=== PATIENT | female | born 1955 | race Caucasian/White ===

== ENCOUNTER 2017-09-25 01:16 | Inpatient (IN) | payer BC ==
[~2017-09-25] VITALS: Ht 175.3 cm; Wt 111.5 kg
[2017-09-25] VITALS (22 sets, daily range): BP systolic 105–214; BP diastolic 54–124; PULSE 75–132; RESP 20–32; TEMP 97.5–98.6; O2SAT 93–100
[2017-09-25] MEDS ORDERED: NITROGLYCERIN-D5W 50 MG/250 ML 250 ML IV ONE (01:30)
[2017-09-25] MEDS ORDERED: SODIUM CHLORIDE 0.9% FLUSH 10 ML FLUSH IVF PRN (01:30)
[2017-09-25] MEDS ORDERED: RESP: ALBUTEROL 2.5 MG/IPRATROPIUM 0.5 MG NEB (SCH) INH ONE (01:30)
[2017-09-25 01:41] LABS: AUTOMATED NEUTROPHIL # 9.6 TH/MM3 (1.8-7.7); BASOPHIL # 0.1 TH/MM3 (0-0.2); BASOPHIL % 0.8 % (0.0-2.0); EOSINOPHIL # 0.6 TH/MM3 (0-0.4); EOSINOPHIL % 3.2 % (0.0-4.0); HEMATOCRIT 42.1 % (35.0-46.0); HEMOGLOBIN 13.2 GM/DL (11.6-15.3); LYMPH % 32.7 % (9.0-44.0); LYMPHOCYTE # 5.6 TH/MM3 (1.0-4.8); MEAN CELL VOLUME 86.9 FL (80.0-100.0); MEAN CORPUSCULAR HEMOGLOBIN 27.3 PG (27.0-34.0); MEAN CORPUSCULAR HGB CONC 31.4 % (32.0-36.0); MEAN PLATELET VOLUME 8.7 FL (7.0-11.0); MONO % 7.4 % (0.0-8.0); MONOCYTE # 1.3 TH/MM3 (0-0.9); NEUT % 55.9 % (16.0-70.0); PLATELET COUNT 441 TH/MM3 (150-450); RED BLOOD COUNT 4.85 MIL/MM3 (4.00-5.30); RED CELL DISTRIBUTION WIDTH 16.1 % (11.6-17.2); WHITE BLOOD COUNT 17.2 TH/MM3 (4.0-11.0)
[2017-09-25 01:45] LABS: BILIRUBIN, URINE NEG (NEG); BLOOD, URINE TRACE (NEG); GLUCOSE,URINE TRACE mg/dL (NEG); HYALINE CAST, URINE 3 /lpf (RARE); KETONE, URINE NEG (NEG); NITRITE,URINE NEG (NEG); SQUAMOUS EPITHELIAL CELL URINE 3 /hpf (0-5); URINE COLOR LIGHT-YELLOW (YELLW/STRAW); URINE LEUKOCYTE ESTERASE NEG (NEG)
[2017-09-25 01:52] LABS: PROTHROMBIN TIME - PATIENT 10.6 SEC (9.8-11.6)
[2017-09-25 02:21] LABS: ALBUMIN 3.7 GM/DL (3.4-5.0); ALT (GPT) 21 U/L (10-53); AST (GOT) 35 U/L (15-37); BLOOD UREA NITROGEN 12 MG/DL (7-18); CALCIUM 8.8 MG/DL (8.5-10.1); CHLORIDE 104 MEQ/L (98-107); CREATININE 1.25 MG/DL (0.50-1.00); GLOMERULAR FILTRATION RATE 37 ML/MIN (>89); GLUCOSE,RANDOM 343 MG/DL (74-106); SODIUM (NA) 136 MEQ/L (136-145)
[2017-09-25 02:25] LABS: ALKALINE PHOSPHATASE 105 U/L (45-117); TOTAL BILIRUBIN ADULT 0.2 MG/DL (0.2-1.0); TOTAL PROTEIN 8.1 GM/DL (6.4-8.2); TROPONIN I 0.04 NG/ML (0.02-0.05)
--- NOTE | 2017-09-25 02:28 | RADRPT ---
EXAM DATE/TIME: 09/25/2017 01:46 [facility] COMPARISON: No previous studies available for comparison. INDICATIONS : Short of breath. MEDICAL HISTORY : None. SURGICAL HISTORY : None. ENCOUNTER: Initial ACUITY: 1 day PAIN SCORE: 7/10 LOCATION: Bilateral chest FINDINGS: A single view of the chest demonstrates cardiomegaly with a mild to moderate pulmonary edema pattern. Small pleural effusions. CONCLUSION: 1. Mild congestive heart failure. Phill Andrea MD on September 25, 2017 at 2:25 Board Certified Radiologist. This report was verified electronically.
--- NOTE | 2017-09-25 02:38 | PD ---
HPI Chief Complaint: Respiratory Symptoms Time Seen by Provider: 01:17 Travel History International Travel<30 days: No Contact w/Intl Traveler<30days: No Traveled to known affect area: No History of Present Illness HPI Adult female presents to the emergency department by EMS transport emergently from home for acute respiratory distress with low O2 saturations on CPAP. Patient noted per EMS to have rales. Patient reportedly awakened markedly and acutely short of breath this morning just prior to arrival to the emergency department. Patient reportedly has noted some swelling of the lower extremities over the past few days. No prior history of congestive heart failure or volume overload. Patient with history of hypertension diabetes tobacco use and alcohol use. No recent febrile illness. PFSH Past Medical History Narrative Medical Hypertension diabetes tobacco use or alcohol use cholecystectomy; nursing notes reviewed Diabetes: Yes Patient Takes Glucophage: No Diminished Hearing: No Hypertension: Yes Immunizations Current: Yes Past Surgical History Cholecystectomy: Yes Social History Alcohol Use: Yes Tobacco Use: Yes Substance Use: No Allergies-Medications (Allergen,Severity, Reaction): Coded Allergies: No Known Allergies (Unverified , 09/25/17) Review of Systems Except as stated in HPI: all other systems reviewed are Neg General / Constitutional: No: Fever, Chills HENT: No: Congestion Cardiovascular: Positive: Edema, No: Chest Pain or Discomfort Respiratory: Positive: Cough, Shortness of Breath, Orthopnea Gastrointestinal: No: Vomiting, Abdominal Pain Genitourinary: No: Flank Pain Musculoskeletal: Positive: Edema, No: Pain Skin: No Rash Neurologic: No: Weakness Psychiatric: Positive: Anxiety Hematologic/Lymphatic: No: Easy Bruising Physical Exam Narrative GENERAL: Well-developed morbidly obese female presents in acute respiratory distress with accessory muscle use diaphoresis and tachypnea noted to be markedly hypertensive by EMS report and on school lunch monitor associated with sinus tachycardia SKIN: Cool and diaphoretic. HEAD: Normocephalic. EYES: No scleral icterus. No injection or drainage. NECK: Supple, trachea midline. No JVD or lymphadenopathy. CARDIOVASCULAR: Increased regular rate and rhythm without murmurs, gallops, or rubs. RESPIRATORY: Breath sounds equal bilaterally with diffuse rales and accessory muscle use. GASTROINTESTINAL: Abdomen soft, non-tender, nondistended. MUSCULOSKELETAL: No cyanosis, bilateral pedal edema. BACK: Nontender without obvious deformity. No CVA tenderness. Data Data Last Documented VS Vital Signs Date Time Temp Pulse Resp B/P (MAP) Pulse Ox O2 Delivery O2 Flow Rate FiO2 09/25/17 02:06 120 24 147/70 (95) 100 CPAP 100 09/25/17:17 97.5 Orders Orders Complete Blood Count With Diff (09/25/17:17) Comprehensive Metabolic Panel (09/25/17:17) B-Type Natriuretic Peptide (09/25/17:17) Act Partial Throm Time (Ptt) (09/25/17:17) Prothrombin Time / Inr (Pt) (09/25/17:17) Magnesium (Mg) (09/25/17:17) Ckmb (Isoenzyme) Profile (09/25/17:17) Troponin I (09/25/17:17) Urinalysis - C+S If Indicated (09/25/17:17) Iv Access Insert/Monitor (09/25/17:17) Electrocardiogram (09/25/17:17) Ecg Monitoring (09/25/17:17) Oximetry (09/25/17:17) Oxygen Administration (09/25/17:17) Chest, Single Ap (09/25/17:17) Sodium Chloride 0.9% Flush (Ns Flush) (09/25/17 01:30) Albuterol-Ipratropium Neb (Duoneb Neb) (09/25/17 01:30) Nitroglycerin-D5w 50 Mg/250 Ml (Nitrogly (09/25/17 01:30) Resp Bipap / Cpap Non Invas Vt (09/25/17 ) Urinary Catheter Insert/Apply (09/25/17:17) CKMB (09/25/17 01:30) CKMB% (09/25/17 01:30) Admit Order (Ed Use Only) (09/25/17 ) Sales Representative Supervisor / Telemetry [id number] (09/25/17 02:38) Activity Bed Rest (09/25/17 02:38) Notify Dr: Other (09/25/17 02:38) Labs Laboratory Tests Test 09/25/17 01:30 White Blood Count 17.2 TH/MM3 Red Blood Count 4.85 MIL/MM3 Hemoglobin 13.2 GM/DL Hematocrit 42.1 % Mean Corpuscular Volume 86.9 FL Mean Corpuscular Hemoglobin 27.3 PG Mean Corpuscular Hemoglobin Concent 31.4 % Red Cell Distribution Width 16.1 % Platelet Count 441 TH/MM3 Mean Platelet Volume 8.7 FL Neutrophils (%) (Auto) 55.9 % Lymphocytes (%) (Auto) 32.7 % Monocytes (%) (Auto) 7.4 % Eosinophils (%) (Auto) 3.2 % Basophils (%) (Auto) 0.8 % Neutrophils # (Auto) 9.6 TH/MM3 Lymphocytes # (Auto) 5.6 TH/MM3 Monocytes # (Auto) 1.3 TH/MM3 Eosinophils # (Auto) 0.6 TH/MM3 Basophils # (Auto) 0.1 TH/MM3 CBC Comment AUTO DIFF Differential Total Cells Counted 100 Neutrophils % (Manual) 62 % Lymphocytes % 33 % Monocytes % 4 % Eosinophils % 1 % Neutrophils # (Manual) 10.7 TH/MM3 Differential Comment FINAL DIFF MANUAL Platelet Estimate HIGH Platelet Morphology Comment NORMAL Prothrombin Time 10.6 SEC Prothromb Time International Ratio 1.0 RATIO Activated Partial Thromboplast Time 24.8 SEC Urine Color LIGHT-YELLOW Urine Turbidity CLEAR Urine pH 6.0 Urine Specific [place] 1.009 Urine Protein 100 mg/dL Urine Glucose (UA) TRACE mg/dL Urine Ketones NEG mg/dL Urine Occult Blood TRACE Urine Nitrite NEG Urine Bilirubin NEG Urine Urobilinogen LESS THAN 2.0 MG/DL Urine Leukocyte Esterase NEG Urine RBC LESS THAN 1 /hpf Urine WBC 1 /hpf Urine Squamous Epithelial Cells 3 /hpf Urine Hyaline Casts 3 /lpf Microscopic Urinalysis Comment CULT NOT INDICATED Blood Urea Nitrogen 12 MG/DL Creatinine 1.25 MG/DL Random Glucose 343 MG/DL Total Protein 8.1 GM/DL Albumin 3.7 GM/DL Calcium Level 8.8 MG/DL Magnesium Level 2.0 MG/DL Alkaline Phosphatase 105 U/L Aspartate Amino Transf (AST/SGOT) 35 U/L Alanine Aminotransferase (ALT/SGPT) 21 U/L Total Bilirubin 0.2 MG/DL Sodium Level 136 MEQ/L Potassium Level 3.9 MEQ/L Chloride Level 104 MEQ/L Carbon Dioxide Level 21.0 MEQ/L Anion Gap 11 MEQ/L Estimat Glomerular Filtration Rate 37 ML/MIN Total Creatine Kinase 151 U/L Creatine Kinase MB 4.5 NG/ML Troponin I 0.04 NG/ML B-Type Natriuretic Peptide 617 PG/ML MDM Medical Decision Making Medical Screen Exam Complete: Yes Emergency Medical Condition: Yes Medical Record Reviewed: Yes Interpretation(s) CBC & BMP Diagram 09/25/17 01:30 Total Protein 8.1, Albumin 3.7, Calcium Level 8.8, Magnesium Level 2.0, Alkaline Phosphatase 105, Aspartate Amino Transf (AST/SGOT) 35, Alanine Aminotransferase (ALT/SGPT) 21, Total Bilirubin 0.2 Vital Signs Date Time Temp Pulse Resp B/P (MAP) Pulse Ox O2 Delivery O2 Flow Rate FiO2 09/25/17 02:06 120 24 147/70 (95) 100 CPAP 100 09/25/17 01:30 124 26 182/110 (134) 97 CPAP 100 09/25/17 01:30 132 214/124 09/25/17 01:21 95 CPAP 100 09/25/17 01:21 27 95 CPAP 100 09/25/17 01:17 132 29 214/124 (154) 95 cxr: chf ekg: Sinus tachycardia with age-indeterminate QRS anteroseptally and inferiorly age-indeterminate GA Differential Diagnosis Dyspnea, acute respiratory distress, hypoxemia, CHF, pneumonia, COPD, GA, PE, anemia; also consider pneumothorax Narrative Course Patient placed immediately on school lunch monitor with continuous pulse oximetry and transferred from CPAP to BiPAP 12/5 100% FiO2; en route to the hospital patient had received Lasix 100 mg IV; upon arrival patient noted to be markedly hypertensive and nitroglycerin infusion initiated Patient showing evidence of response with improved oxygenation and ventilatory effort on BiPAP support Chest x-ray shows congestive heart failure consistent with patient's presentation CBC with automated differential with leukocytosis without left shift by automated differential CK total 151 with elevated MB of 4.5 however MB percent is 2.3, not elevated; troponin I 0.04 not elevated BNP is elevated at 617 metabolic panel identifies mild elevation of creatinine 1.25 Coagulation studies within normal limits I: Urinalysis within normal range Patient's case discussed with on-call human resources temp for admission for hypertensive crisis with congestive heart failure and hypoxemia Physician Communication Physician Communication discussed with human resources temp Dr Early Diagnosis Primary Impression: CHF (congestive heart failure) Additional Impression: Hypertensive crisis Admitting Information Admitting Physician Requests: Admit Kaur Chambers MD Sep 25, 2017 02:38
[2017-09-25] MEDS ORDERED: TEMAZEPAM 15 MG CAP PO PRN (03:30)
[2017-09-25] MEDS ORDERED: SENNOSIDES 8.6 MG TAB PO PRN (03:30)
[2017-09-25] MEDS ORDERED: SODIUM CHLORIDE 0.9% FLUSH 10 ML FLUSH IV FLUSH PRN (03:30)
[2017-09-25] MEDS ORDERED: MAGNESIUM HYDROXIDE SUSP 30 ML CUP PO PRN (03:30)
[2017-09-25] MEDS ORDERED: RESP: ALBUTEROL 2.5 MG/IPRATROPIUM 0.5 MG NEB (PRN) INH (03:30)
[2017-09-25] MEDS ORDERED: LACTULOSE SYRUP 20 GM/30 ML CUP PO PRN (03:30)
[2017-09-25] MEDS ORDERED: ONDANSETRON HCL 4 MG/2 ML VIAL IV PUSH PRN (03:30)
[2017-09-25] MEDS ORDERED: BISACODYL 10 MG SUPP RECTAL PRN (03:30)
[2017-09-25] MEDS ORDERED: CHLORHEXIDINE GLUCONATE 2 % 1 PACK (2 CLOTHS) TOP PRN (03:30)
[2017-09-25] MEDS ORDERED: ACETAMINOPHEN 325 MG TAB PO PRN (03:30)
[2017-09-25] MEDS ORDERED: MISCELLANEOUS NURSING INFORMATION XX SCH (03:30)
[2017-09-25 03:33] LABS: LYMPHOCYTES 33 % (9-44); MONOCYTES 4 % (0-8); NEUTROPHIL # MANUAL DIFF 10.7 TH/MM3 (1.8-7.7); POLYS (SEG NEUTROPHILS) 62 % (16-70)
[2017-09-25] MEDS ORDERED: hydrALAZINE HCL 20 MG/ML VIAL IV PUSH PRN (03:45)
[2017-09-25] MEDS: RESP: ALBUTEROL 2.5 MG/IPRATROPIUM 0.5 MG NEB (SCH) INH ×5 (03:59→20:56)
[2017-09-25] MEDS: CHLORHEXIDINE GLUCONATE 2 % 1 PACK (2 CLOTHS) TOP SCH (04:00)
[2017-09-25] MEDS: FUROSEMIDE 20 MG/2 ML VIAL IV PUSH SCH ×2 (04:37→08:26)
--- NOTE | 2017-09-25 05:55 | HHI.HP ---
HPI Service Critical Care Medicine Primary Care Physician No Primary Care Physician Admission Diagnosis chf; hypertensive crisis Diagnosis: Travel History International Travel<30 Days: No Contact w/Intl Traveler <30 Da: No Traveled to Known Affected Are: No History of Present Illness 48 [id number] female presents from home for acute respiratory distress with low O2 saturations on CPAP. Patient noted per EMS to have rales. Patient reportedly awakened markedly and acutely short of breath this morning just prior to arrival to the emergency department. She has noted some swelling of the lower extremities over the past few days. No prior history of congestive heart failure or volume overload. Patient with history of hypertension diabetes tobacco use and alcohol use. No recent febrile illness. Review of Systems ROS Unable to obtain patient is respiratory distress on facemask BiPAP Past Family Social History Allergies: Coded Allergies: No Known Allergies (Unverified , 09/25/17) Past Medical History Hypertension Diabetes mellitus Tobacco use disorder Past Surgical History Cholecystectomy Reported Medications Unable to obtain Active Ordered Medications Current Medications Medications (Trade) Dose Ordered Sig/Craig Route PRN Reason Start Time Stop Time Status Last Admin Dose Admin Sodium Chloride (NS Flush) 2 ml UNSCH PRN IV FLUSH FLUSH AFTER USING IV ACCESS 09/25/17 03:30 Sodium Chloride (NS Flush) 2 ml BID IV FLUSH 09/25/17 09:00 Acetaminophen (Tylenol) 650 mg Q6H PRN PO PAIN 1-5 AND/OR FEVER >101F 09/25/17 03:30 Famotidine (Pepcid Inj) 10 mg Q12HR IV PUSH 09/25/17 09:00 Ondansetron HCl (Zofran Inj) 4 mg Q6H PRN IV PUSH NAUSEA OR VOMITING 09/25/17 03:30 Temazepam (Restoril) 15 mg HS PRN PO INSOMNIA 09/25/17 03:30 Albuterol/ Ipratropium (Duoneb Neb) 1 ampule Q6HR NEB INH 09/25/17 04:00 09/25/17 03:59 Albuterol/ Ipratropium (Duoneb Neb) 1 ampule Q2HR NEB PRN INH WHEEZING 09/25/17 03:30 Heparin Sodium (Porcine) (Heparin Inj) 5,000 units Q8H SQ 09/25/17 06:00 Miscellaneous Information 1 [id number] XX 09/25/17 03:30 Chlorhexidine Gluconate (Chlorhexidine 2% Cloth) 3 pack Taper DAILY@04 TOP 09/25/17 04:00 09/21/18 03:59 Chlorhexidine Gluconate (Chlorhexidine 2% Cloth) 3 pack UNSCH PRN TOP HYGIENIC CARE 09/25/17 03:30 Senna/Docusate Sodium (Isabel-Colace) 1 tab BID PO 09/25/17 09:00 Magnesium Hydroxide (Milk Of Magnesia Liq) 30 ml Q12H PRN PO Mild constipation 09/25/17 03:30 Sennosides (Senokot) 17.2 mg Q12H PRN PO Moderate constipation 09/25/17 03:30 Bisacodyl (Dulcolax Supp) 10 mg DAILY PRN RECTAL SEVERE CONSITIPATION 09/25/17 03:30 Lactulose (Lactulose Liq) 30 ml DAILY PRN PO SEVERE CONSITIPATION 09/25/17 03:30 Furosemide (Lasix Inj) 20 mg Q6H IV PUSH 09/25/17 04:00 09/26/17 10:01 09/25/17 04:37 Hydralazine HCl (Apresoline Inj) 20 mg Q4H PRN IV PUSH SBP>160, DBP>90 09/25/17 03:45 Family History No family history of early coronary artery disease Social History Alcohol Use: Yes Tobacco Use: Yes Substance Use: No Physical Exam Vital Signs Vital Signs Date Time Temp Pulse Resp B/P (MAP) Pulse Ox O2 Delivery O2 Flow Rate FiO2 09/25/17 03:26 100 60 09/25/17 03:00 108 28 131/70 (90) 99 CPAP 100 09/25/17 02:06 120 24 147/70 (95) 100 CPAP 100 09/25/17 01:30 124 26 182/110 (134) 97 CPAP 100 09/25/17 01:30 132 214/124 09/25/17 01:21 95 CPAP 100 09/25/17 01:21 27 95 CPAP 100 09/25/17 01:17 97.5 132 29 214/124 (154) 95 09/25/17 01:11 93 100 Physical Exam GENERAL: Well-nourished, well-developed patient. In severe respiratory distress on facemask BiPAP SKIN: Warm and dry. HEAD: Normocephalic. EYES: No scleral icterus. No injection or drainage. NECK: Supple, trachea midline. No JVD or lymphadenopathy. CARDIOVASCULAR: Regular rate and rhythm without murmurs, gallops, or rubs. RESPIRATORY: Breath sounds equal bilaterally. No accessory muscle use. GASTROINTESTINAL: Abdomen soft, non-tender, nondistended. MUSCULOSKELETAL: No cyanosis, or edema. BACK: Nontender without obvious deformity. NEURO EXAM: Alert awake in respiratory distress on facemask BiPAP Reflexes: Biceps, patellar, and Achilles are 2/4 bilaterally. No clonus. Laboratory Laboratory Tests Test 09/25/17 01:30 09/25/17 04:38 White Blood Count 17.2 Red Blood Count 4.85 Hemoglobin 13.2 Hematocrit 42.1 Mean Corpuscular Volume 86.9 Mean Corpuscular Hemoglobin 27.3 Mean Corpuscular Hemoglobin Concent 31.4 Red Cell Distribution Width 16.1 Platelet Count 441 Mean Platelet Volume 8.7 Neutrophils (%) (Auto) 55.9 Lymphocytes (%) (Auto) 32.7 Monocytes (%) (Auto) 7.4 Eosinophils (%) (Auto) 3.2 Basophils (%) (Auto) 0.8 Neutrophils # (Auto) 9.6 Lymphocytes # (Auto) 5.6 Monocytes # (Auto) 1.3 Eosinophils # (Auto) 0.6 Basophils # (Auto) 0.1 CBC Comment AUTO DIFF Differential Total Cells Counted 100 Neutrophils % (Manual) 62 Lymphocytes % 33 Monocytes % 4 Eosinophils % 1 Neutrophils # (Manual) 10.7 Differential Comment FINAL DIFF MANUAL Platelet Estimate HIGH Platelet Morphology Comment NORMAL Prothrombin Time 10.6 Prothromb Time International Ratio 1.0 Activated Partial Thromboplast Time 24.8 Urine Color LIGHT-YELLOW Urine Turbidity CLEAR Urine pH 6.0 Urine Specific [place] 1.009 Urine Protein 100 Urine Glucose (UA) TRACE Urine Ketones NEG Urine Occult Blood TRACE Urine Nitrite NEG Urine Bilirubin NEG Urine Urobilinogen LESS THAN 2.0 Urine Leukocyte Esterase NEG Urine RBC LESS THAN 1 Urine WBC 1 Urine Squamous Epithelial Cells 3 Urine Hyaline Casts 3 Microscopic Urinalysis Comment CULT NOT INDICATED Blood Urea Nitrogen 12 Creatinine 1.25 Random Glucose 343 Total Protein 8.1 Albumin 3.7 Calcium Level 8.8 Magnesium Level 2.0 Alkaline Phosphatase 105 Aspartate Amino Transf (AST/SGOT) 35 Alanine Aminotransferase (ALT/SGPT) 21 Total Bilirubin 0.2 Sodium Level 136 Potassium Level 3.9 Chloride Level 104 Carbon Dioxide Level 21.0 Anion Gap 11 Estimat Glomerular Filtration Rate 37 Total Creatine Kinase 151 Creatine Kinase MB 4.5 Troponin I 0.04 0.25 B-Type Natriuretic Peptide 617 Result Diagram: 09/25/1712909/25/17 013 Imaging Last 24 hours Impressions Chest X-Ray 09/25/17 0117 Signed Impressions: Service Date/Time: Monday, September 25, 2017 01:46 - CONCLUSION: 1. Mild congestive heart failure. Phill Andrea MD Septic Shock Reassessment Septic shock perfusion: reassessment completed Caprini VTE Risk Assessment Caprini VTE Risk Assessment: Mod/High Risk (score >= 2) Caprini Risk Assessment Model Point Value = 1 Point Value = 2 Point Value = 3 Point Value = 5 Age 41-60 Minor surgery BMI > 25 kg/m2 Swollen legs Varicose veins or History of unexplained or recurrent spontaneous Oral contraceptives or hormone replacement Sepsis (< 1 month) Serious lung disease, including pneumonia (< 1 month) Abnormal pulmonary function Acute myocardial infarction Congestive heart failure (< 1 month) History of inflammatory bowel disease Medical patient at bed rest Age 61-74 Arthroscopic surgery Major open surgery (> 45 min) Laparoscopic surgery (> 45 min) Malignancy Confined to bed (> 72 hours) Immobilizing plaster cast Central venous access Age >= 75 History of VTE Family history of VTE Factor V Leiden Prothrombin [id number] Lupus anticoagulant Anticardiolipin antibodies Elevated serum homocysteine Heparin-induced thrombocytopenia Other congenital or acquired thrombophilia Stroke (< 1 month) Elective arthroplasty Hip, pelvis, or leg fracture Acute spinal cord injury (< 1 month) Prophylaxis Regimen Total Risk Factor Score Risk Level Prophylaxis Regimen 0-1 Low Early ambulation 2 Moderate Order ONE of the following: *Sequential Compression Device (SCD) *Heparin 5000 units SQ BID 3-4 Higher Order ONE of the following medications: *Heparin 5000 units SQ TID *Enoxaparin/Lovenox 40 mg SQ daily (WT < 150 kg, CrCl > 30 mL/min) *Enoxaparin/Lovenox 30 mg SQ daily (WT < 150 kg, CrCl > 10-29 mL/min) *Enoxaparin/Lovenox 30 mg SQ BID (WT < 150 kg, CrCl > 30 mL/min) AND/OR *Sequential Compression Device (SCD) 5 or more Highest Order ONE of the following medications: *Heparin 5000 units SQ TID (Preferred with Epidurals) *Enoxaparin/Lovenox 40 mg SQ daily (WT < 150 kg, CrCl > 30 mL/min) *Enoxaparin/Lovenox 30 mg SQ daily (WT < 150 kg, CrCl > 10-29 mL/min) *Enoxaparin/Lovenox 30 mg SQ BID (WT < 150 kg, CrCl > 30 mL/min) AND *Sequential Compression Device (SCD) Assessment and Plan Assessment and Plan Respiratory failure - Congestive heart failure - BiPAP when necessary - Aggressive diuresis - Wean O2 to keep sats above 92 Acute congestive heart failure - No history of prior CHF - Series of troponins to rule out acute coronary syndrome - Series of EKGs - 2-D echo - Arterial as a consultation Diabetes mellitus - Insulin sliding scale Hypertension - Hydralazine when necessary to keep SBP less than 160 - Hold beta ck and MATHEUS inhibitor due to acute CHF Acute kidney injury - Unknown baseline - Monitor creatinine level and electrolytes replacement per ICU protocol Critical Care: The total critical care time was 35 minutes. Time to perform other separately billable procedures was not included in the critical care time. Juancarlos Early MD Sep 25, 2017 5:55 am
[2017-09-25] MEDS ORDERED: DEXTROSE 50% IN WATER 50 ML VIAL(D50) IV PUSH PRN (06:00)
[2017-09-25] MEDS ORDERED: GLUCAGON 1 MG/ML VIAL OTHER PRN (06:00)
[2017-09-25] MEDS ORDERED: MAGNESIUM SULFATE INJ 4 GM in SODIUM CHLORIDE 0.9% INJ 92 ML IV PRN (06:15)
[2017-09-25] MEDS ORDERED: POTASSIUM PHOSPHATE INJ 30 MMOL in SODIUM CHLOR 0.9% 250 ML INJ 250 ML IV PRN (06:15)
[2017-09-25] MEDS ORDERED: MAGNESIUM SULFATE INJ 2 GM in SODIUM CHLORIDE 0.9% INJ 96 ML IV PRN (06:15)
[2017-09-25] MEDS ORDERED: POTASSIUM PHOSPHATE MONOBASIC 500 MG TAB PO PRN (06:15)
[2017-09-25] MEDS ORDERED: SODIUM PHOSPHATE INJ 30 MMOL in SODIUM CHLOR 0.9% 250 ML INJ 240 ML IV PRN (06:15)
[2017-09-25] MEDS ORDERED: POTASSIUM PHOSPHATE MONOBASIC 500 MG TAB PO/TUBE PRN (06:15)
[2017-09-25] MEDS ORDERED: MAGNESIUM OXIDE 400 MG TAB PO PRN (06:15)
[2017-09-25] MEDS ORDERED: POTASSIUM CHLORIDE 25 MEQ EFFERVESCENT TAB PO PRN (06:15)
[2017-09-25] MEDS ORDERED: POTASSIUM CHLOR 20 MEQ PREMIX 100 ML IV PRN ×2 (06:15)
[2017-09-25] MEDS ORDERED: POTASSIUM CHLOR 40 MEQ PREMIX 100 ML IV PRN ×2 (06:15)
[2017-09-25] MEDS: DOCUSATE SODIUM 50 MG/SENNA 8.6 MG TAB PO SCH ×2 (07:57→21:00)
[2017-09-25] MEDS: SODIUM CHLORIDE 0.9% FLUSH 10 ML FLUSH IV FLUSH SCH ×2 (07:57→21:09)
[2017-09-25] MEDS: HEPARIN SODIUM - SQ 10,000 UNITS/ML VIAL SQ SCH ×3 (07:57→21:09)
[2017-09-25] MEDS: FAMOTIDINE 20 MG/2 ML VIAL IV PUSH SCH ×2 (07:57→21:09)
[2017-09-25] MEDS: INSULIN NovoLIN REGULAR SUPPLEMENTAL SCALE SQ SCH ×4 (07:58→21:00)
[2017-09-25] MEDS ORDERED: LORazepam 2 MG/ML VIAL IV PUSH ONE ×2 (08:00→11:30)
--- NOTE | 2017-09-25 08:00 | RADRPT ---
EXAM DATE/TIME: 09/25/2017 07:14 [facility] COMPARISON: CHEST SINGLE AP, September 25, 2017, 1:46. INDICATIONS : CHF. MEDICAL HISTORY : None. SURGICAL HISTORY : None. ENCOUNTER: Subsequent ACUITY: 2 days PAIN SCORE: Non-responsive. LOCATION: Bilateral chest FINDINGS: AP upright portable view of the chest again demonstrates moderate cardiomegaly with diffuse cephaliza tion of pulmonary vasculature. Bilateral basilar airspace opacities. The exam is not significantly ch anged from the prior. CONCLUSION: Stable findings of congestive heart failure and pulmonary edema. Bilateral basilar airspace consolida tion versus atelectasis. Kelsy Mancia MD on September 25, 2017 at 7:55 Board Certified Radiologist. This report was verified electronically.
[2017-09-25] MEDS ORDERED: MORPHINE SULFATE 2 MG/ML INJ IV PUSH ONE (11:30)
[2017-09-25] MEDS: CEFEPIME INJ 2,000 MG in SODIUM CHLORIDE 0.9% INJ 100 ML IV SCH ×2 (12:31→22:19)
[2017-09-25 13:07] LABS: PHOSPHORUS 3.4 MG/DL (2.5-4.9)
[2017-09-25 13:09] LABS: TROPONIN I 0.37 NG/ML (0.02-0.05)
--- NOTE | 2017-09-25 15:42 | MB ---
cc: MILLY VELASQUEZ M.D. DATE OF CONSULTATION: 09/25/2017. REASON FOR CONSULTATION: Shortness of breath. Heart failure. HISTORY OF PRESENT ILLNESS: Gretchen Beckford is a 62-year-old female. Her first name is Thalia. Her last name is Megan. She just moved a couple of days ago from [place]. She has a history of high blood pressure, diabetes mellitus. She has a couple of drinks at least every day plus smokes around a pack of cigarettes a day. She was having some shortness of breath, even when the smoking was stopped. Yesterday night she was having shortness of breath and could barely breath, called [facility] and was brought to the emergency room. IV diuretic was given. Antibiotic initiated. The patient's condition continued to improve. I was consulted for further evaluation and management. The chart was reviewed. The patient was evaluated. I had a long conversation with the patient, her and family who were at bedside. ALLERGIES: NONE. SOCIAL HISTORY: As mentioned above, smokes close to a pack of cigarettes a day and drinks two or three drinks a day. FAMILY HISTORY: Noncontributory to her current medical condition. MEDICATIONS AT HOME: She was on: 1. Lisinopril. 2. Glyburide. REVIEW OF SYSTEMS: Currently she refers no chest pain. Some shortness of breath. No vomiting. No fever. PHYSICAL EXAMINATION: GENERAL: Alert, fully oriented. VITAL SIGNS: Her blood pressure is 144/73, pulse on the monitor currently is around 100, respiratory rate 20. LUNGS: Ventilated. Some crackles. CARDIOVASCULAR: S1, S2 regular. ABDOMEN: Abdomen obese, no mass. No bruits. EXTREMITIES: With some minimal edema. EKGS: Electrocardiogram shows sinus rhythm, poor R wave progression, diffuse S-T and T wave changes. LABS: Potassium 3.9, creatinine is 1.25. Troponin is 0.37. BNP 617. INR 1. Hemoglobin is 13.2, white blood cells 17.2. ASSESSMENT AND RECOMMENDATIONS: Mrs. Guzman has a history of diabetes mellitus. She was having coughing and shortness of breath for a day. She may also have pneumonia. Also she has failure and coronary event should be suspected. Her BNP is only in the 600s. There is no need further diuretics. Her creatinine is 1.25. Her blood pressure will need to be controlled. She should continue on the antibiotics. A 2-D echocardiogram was ordered to evaluate wall motion and valvular function but the results are not available. She will need a nuclear stress study to rule out possible . I discussed the case extensively with her. I will re-initiate her home medications. I will monitor her during the hospitalization. Milly Velasquez MD /LEANN /2:05 PM /3:30 PM
[2017-09-25] MEDS: ASPIRIN 81 MG CHEW TAB CHEW SCH (16:10)
[2017-09-25] MEDS: LISINOPRIL 20 MG TAB PO SCH (16:10)
[2017-09-25 16:23] LABS: BICARBONATE 28.6 MEQ/L (21.0-32.0); CALCIUM 9.3 MG/DL (8.5-10.1); CREATININE 1.06 MG/DL (0.50-1.00)
--- NOTE | 2017-09-25 16:42 | EKG ---
Date Performed: 09/25/2017 Time Performed: 09:39:14 PTAGE: 89 years EKG: Sinus rhythm POSSIBLE ANTERIOR MYOCARDIAL INFARCTION , PROBABLY OLD BORDERLINE ECG INTERPRETATION BASED ON A DEFA ULT AGE OF 40 YEARS PREVIOUS TRACING : 09/25/2017 03.58 Since the prior tracing, there has been no significan t change DOCTOR: Alexsander Mcgowan Interpretating Date/Time 09/25/2017 16:40:13
--- NOTE | 2017-09-25 16:55 | EKG ---
Date Performed: 09/25/2017 Time Performed: 03:58:55 PTAGE: 89 years EKG: SINUS TACHYCARDIA ANTEROSEPTAL MYOCARDIAL INFARCTION MODERATE T-WAVE ABNORMALITY, CONSIDER LATERAL ISCHEMIA ABNORMAL ECG INTERPRETATION BASED ON A DEFAULT AGE OF 40 YEARS Compared to prior tra cing, rate has decreased DOCTOR: Alexsander Mcgowan Interpretating Date/Time 09/25/2017 16:53:59
--- NOTE | 2017-09-25 16:59 | EKG ---
Date Performed: 09/25/2017 Time Performed: 01:15:43 PTAGE: 89 years EKG: SINUS TACHYCARDIA ANTEROSEPTAL MYOCARDIAL INFARCTION MODERATE T-WAVE ABNORMALITY, CONSIDER LATERAL ISCHEMIA BASELINE ARTIFACT ABNORMAL ECG INTERPRETATION BASED ON A DEFAULT AGE OF 40 YEARS NO PREVIOUS TRACING DOCTOR: Alxesander Mcgowan Interpretating Date/Time 09/25/2017 16:56:47
[2017-09-25] MEDS: CARVEDILOL 6.25 MG TAB PO SCH (21:09)
[2017-09-26] VITALS (11 sets, daily range): BP systolic 129–139; BP diastolic 61–68; PULSE 68–79; RESP 20–52; TEMP 98.2–98.5; O2SAT 88–99
[2017-09-26] MEDS: RESP: ALBUTEROL 2.5 MG/IPRATROPIUM 0.5 MG NEB (SCH) INH ×3 (03:45→16:00)
[2017-09-26] MEDS: CHLORHEXIDINE GLUCONATE 2 % 1 PACK (2 CLOTHS) TOP SCH (04:00)
--- NOTE | 2017-09-26 04:06 | RADRPT ---
EXAM DATE/TIME: 09/26/2017 03:17 [facility] COMPARISON: CHEST SINGLE AP, September 25, 2017, 7:14. INDICATIONS : Shortness of breath, possible pulmonary disease. MEDICAL HISTORY : Congestive heart failure. SURGICAL HISTORY : None. ENCOUNTER: Subsequent ACUITY: 3 days PAIN SCORE: Non-responsive. LOCATION: Bilateral chest FINDINGS: A single view of the chest demonstrates the lungs to be symmetrically aerated without evidence of mas s, infiltrate or effusion. The cardiomediastinal contours are unremarkable. Osseous structures are intact. CONCLUSION: No acute disease. Ricardo Rivas MD on September 26, 2017 at 4:04 Board Certified Radiologist. This report was verified electronically.
[2017-09-26] MEDS: HEPARIN SODIUM - SQ 10,000 UNITS/ML VIAL SQ SCH ×2 (06:11→14:00)
[2017-09-26 06:32] LABS: INTERNATIONAL NORMALIZED RATIO 1.1 RATIO; PROTHROMBIN TIME - PATIENT 11.3 SEC (9.8-11.6)
[2017-09-26 06:50] LABS: ALBUMIN 3.2 GM/DL (3.4-5.0); ALT (GPT) 18 U/L (10-53); AST (GOT) 20 U/L (15-37); BICARBONATE 29.3 MEQ/L (21.0-32.0); BLOOD UREA NITROGEN 16 MG/DL (7-18); CHLORIDE 103 MEQ/L (98-107); CREATININE 0.99 MG/DL (0.50-1.00); GLOMERULAR FILTRATION RATE 48 ML/MIN (>89); GLUCOSE,RANDOM 130 MG/DL (74-106); MAGNESIUM 1.8 MG/DL (1.5-2.5); SODIUM (NA) 139 MEQ/L (136-145)
[2017-09-26 06:52] LABS: ALKALINE PHOSPHATASE 74 U/L (45-117); TOTAL BILIRUBIN ADULT 0.4 MG/DL (0.2-1.0); TOTAL PROTEIN 6.7 GM/DL (6.4-8.2)
[2017-09-26] MEDS: INSULIN NovoLIN REGULAR SUPPLEMENTAL SCALE SQ SCH ×2 (08:00→12:00)
--- NOTE | 2017-09-26 08:25 | PD.CARD.PN ---
Subjective Subjective Remarks Sitting up at bedside, mild dyspnea, no other complaints. Objective Medications Current Medications Medications (Trade) Dose Ordered Sig/Craig Route Start Time Stop Time Status Last Admin (NS Flush) 2 ml UNSCH PRN IV FLUSH 09/25/17 03:30 (NS Flush) 2 ml BID IV FLUSH 09/25/17 09:00 09/25/17 21:09 (Tylenol) 650 mg Q6H PRN PO 09/25/17 03:30 09/25/17 17:06 (Pepcid Inj) 10 mg Q12HR IV PUSH 09/25/17 09:00 09/25/17 21:09 (Zofran Inj) 4 mg Q6H PRN IV PUSH 09/25/17 03:30 (Restoril) 15 mg HS PRN PO 09/25/17 03:30 (Duoneb Neb) 1 ampule Q6HR NEB INH 09/25/17 04:00 09/26/17 03:45 (Duoneb Neb) 1 ampule Q2HR NEB PRN INH 09/25/17 03:30 (Heparin Inj) 5,000 units Q8H SQ 09/25/17 06:00 09/26/17 06:11 Miscellaneous Information 1 Q361D XX 09/25/17 03:30 (Chlorhexidine 2% Cloth) 3 pack Taper DAILY@04 TOP 09/25/17 04:00 09/21/18 03:59 09/26/17 04:00 (Chlorhexidine 2% Cloth) 3 pack UNSCH PRN TOP 09/25/17 03:30 (Isabel-Colace) 1 tab BID PO 09/25/17 09:00 09/25/17 07:57 (Milk Of Magnesia Liq) 30 ml Q12H PRN PO 09/25/17 03:30 (Senokot) 17.2 mg Q12H PRN PO 09/25/17 03:30 (Dulcolax Supp) 10 mg DAILY PRN RECTAL 09/25/17 03:30 (Lactulose Liq) 30 ml DAILY PRN PO 09/25/17 03:30 (Apresoline Inj) 20 mg Q4H PRN IV PUSH 09/25/17 03:45 (D50w (Vial) Inj) 50 ml UNSCH PRN IV PUSH 09/25/17 06:00 (Glucagon Inj) 1 mg UNSCH PRN OTHER 09/25/17 06:00 (NovoLIN R SUPPLEMENTAL SCALE) 1 ACHS SLIDING SCALE SQ 09/25/17 08:00 09/25/17 07:58 Potassium Chloride 100 ml @ 50 mls/hr Q2H PRN IV 09/25/17 06:15 Potassium Chloride 100 ml @ 50 mls/hr Q2H PRN IV 09/25/17 06:15 (K-Lyte Cl Eff) 50 meq UNSCH PRN PO 09/25/17 06:15 Potassium Chloride 100 ml @ 25 mls/hr UNSCH PRN IV 09/25/17 06:15 Potassium Chloride 100 ml @ 50 mls/hr Q2H PRN IV 09/25/17 06:15 Magnesium Sulfate 4 gm/Sodium Chloride 100 ml @ 50 mls/hr UNSCH PRN IV 09/25/17 06:15 (Mag-Ox) 800 mg UNSCH PRN PO 09/25/17 06:15 Magnesium Sulfate 2 gm/Sodium Chloride 100 ml @ 50 mls/hr UNSCH PRN IV 09/25/17 06:15 (K-Phos) 2,000 mg Q4H PRN PO 09/25/17 06:15 Sodium Phosphate 30 mmol/Sodium Chloride 250 ml @ 42 mls/hr UNSCH PRN IV 09/25/17 06:15 (K-Phos) 2,000 mg UNSCH PRN PO/TUBE 09/25/17 06:15 Potassium Phosphate 30 mmol/ Sodium Chloride 260 ml @ 42 mls/hr UNSCH PRN IV 09/25/17 06:15 Cefepime HCl 2000 mg/Sodium Chloride 100 ml @ 200 mls/hr Q12H IV 09/25/17 11:00 09/25/17 22:19 (Prinivil) 20 mg DAILY PO 09/25/17 15:00 09/25/17 16:10 (Coreg) 6.25 mg Q12HR PO 09/25/17 21:00 09/25/17 21:09 (Aspirin Chew) 81 mg DAILY CHEW 09/25/17 15:45 09/25/17 16:10 Vital Signs / I&O Vital Signs Date Time Temp Pulse Resp B/P (MAP) Pulse Ox O2 Delivery O2 Flow Rate FiO2 09/26/17 06:00 68 09/26/17 04:00 98.2 78 22 129/61 (83) 97 09/26/17 04:00 78 09/26/17 03:59 99 Nasal Cannula 2.00 09/26/17 00:00 98.2 69 20 132/68 (89) 99 09/26/17 00:00 69 09/25/17 22:00 75 09/25/17 20:56 99 Nasal Cannula 3.00 09/25/17 20:01 98.4 82 20 152/76 (101) 97 09/25/17 20:00 94 Nasal Cannula 4.00 09/25/17 20:00 82 09/25/17 18:00 91 09/25/17 16:00 98.6 90 28 137/62 (87) 97 09/25/17 16:00 90 09/25/17 14:00 101 09/25/17 12:00 103 09/25/17 12:00 98.4 103 22 105/54 (71) 97 09/25/17 10:00 105 09/25/17 09:04 96 Nasal Cannula 4.00 09/25/17 09:00 104 29 144/73 (96) 97 I/O 09/25/17 09/25/17 09/25/17 09/26/17 09/26/17 09/26/17 07:00 15:00 23:00 07:00 15:00 23:00 Intake Total 1160 ml 240 ml Output Total 650 ml 2600 ml 550 ml Balance -650 ml -1440 ml -310 ml Intake Oral 960 ml 240 ml IV Total 200 ml Output Urine Total 650 ml 2600 ml 550 ml # Bowel Movements 0 0 Physical Exam GENERAL: Well-nourished, well-developed patient. SKIN: Warm and dry. HEAD: Normocephalic. EYES: No scleral icterus. No injection or drainage. NECK: Supple, trachea midline. No JVD or lymphadenopathy. CARDIOVASCULAR: Regular rate and rhythm without murmurs, gallops, or rubs. RESPIRATORY: Breath sounds diminished with bibasilar crackles. No rhonchi or wheezes. GASTROINTESTINAL: Abdomen soft, non-tender, nondistended. EXTREMITIES: No cyanosis, or edema. NEUROLOGICAL: Awake, alert, and oriented x 3. Non-focal. Laboratory Laboratory Tests Test 09/25/17 12:15 09/25/17 15:31 2/11/18 15:32 09/26/17 05:55 Phosphorus Level 3.4 MG/DL 4.0 MG/DL Troponin I 0.37 NG/ML 0.33 NG/ML Blood Urea Nitrogen 18 MG/DL 16 MG/DL Creatinine 1.06 MG/DL 0.99 MG/DL Random Glucose 107 MG/DL 130 MG/DL Calcium Level 9.3 MG/DL 9.0 MG/DL Sodium Level 138 MEQ/L 139 MEQ/L Potassium Level 4.2 MEQ/L 3.8 MEQ/L Chloride Level 103 MEQ/L 103 MEQ/L Carbon Dioxide Level 28.6 MEQ/L 29.3 MEQ/L Anion Gap 6 MEQ/L 7 MEQ/L Estimat Glomerular Filtration Rate 45 ML/MIN 48 ML/MIN Prothrombin Time 11.3 SEC Prothromb Time International Ratio 1.1 RATIO Activated Partial Thromboplast Time 24.0 SEC Total Protein 6.7 GM/DL Albumin 3.2 GM/DL Magnesium Level 1.8 MG/DL Alkaline Phosphatase 74 U/L Aspartate Amino Transf (AST/SGOT) 20 U/L Alanine Aminotransferase (ALT/SGPT) 18 U/L Total Bilirubin 0.4 MG/DL Lactic Acid Level 0.9 mmol/L Imaging Last 24 hours Impressions Chest X-Ray 09/26/17 0600 Signed Impressions: Service Date/Time: Tuesday, September 26, 2017 03:17 - CONCLUSION: No acute disease. Ricardo Rivas MD Assessment and Plan Problem List: (1) CHF (congestive heart failure) ICD Codes: I50.9 - Heart failure, unspecified Status: Acute Plan: Remains dyspneic with occasional cough. Suspicious for pneumonia versus possible coronary event. 2-D echocardiogram has been requested and is pending. Diuresing well. Once stable from a respiratory standpoint she will need a nuclear stress test to rule out possible ischemia. Further management pending today echocardiogram. Blood pressure improved on carvedilol and lisinopril. Assessment and plan per my discussion with Dr. murpyh. Problem Qualifiers (1) CHF (congestive heart failure): Qualified Codes: I50.9 - Heart failure, unspecified Marilee Chin Sep 26, 2017 08:25
[2017-09-26] MEDS: ASPIRIN 81 MG CHEW TAB CHEW SCH (08:47)
[2017-09-26] MEDS: CARVEDILOL 6.25 MG TAB PO SCH (08:47)
[2017-09-26] MEDS: LISINOPRIL 20 MG TAB PO SCH (08:47)
[2017-09-26] MEDS: DOCUSATE SODIUM 50 MG/SENNA 8.6 MG TAB PO SCH (08:48)
[2017-09-26] MEDS: FAMOTIDINE 20 MG/2 ML VIAL IV PUSH SCH (08:48)
[2017-09-26] MEDS: SODIUM CHLORIDE 0.9% FLUSH 10 ML FLUSH IV FLUSH SCH (08:53)
[2017-09-26] MEDS: CEFEPIME INJ 2,000 MG in SODIUM CHLORIDE 0.9% INJ 100 ML IV SCH (11:00)
[2017-09-26] MEDS ORDERED: LISI-515 PO ×2 (15:24→17:16)
[2017-09-26] MEDS ORDERED: CARV6.25 PO ×2 (15:24→17:16)
[2017-09-26] MEDS ORDERED: LEVA750T9 PO ×2 (15:24→17:16)
[2017-09-26] MEDS ORDERED: ASPI81 CHEW ×2 (15:24→17:16)
--- NOTE | 2017-09-26 15:26 | HHI.PR ---
Subjective Remarks Follow up for respiratory failure, congestive heart failure. Patient is currently doing well. She denies any chest pain, shortness of breath, fever, chills. She reports significant improvement of her leg swelling. She is on 2L of O2 via NC. However, she continued to have O2 saturation above 92% on room air as well. She wants to go home as she takes care of her disable . She will follow up with [facility] Dr. Velasquez who saw this patient in the hospital. Objective Vitals Vital Signs Date Time Temp Pulse Resp B/P (MAP) Pulse Ox O2 Delivery O2 Flow Rate FiO2 09/26/17 13:00 79 52 96 09/26/17 12:00 75 09/26/17 12:00 98.4 75 28 132/65 (87) 94 09/26/17 11:00 76 22 95 09/26/17 10:00 73 21 88 09/26/17 10:00 73 09/26/17 09:02 97 09/26/17 09:00 78 25 95 09/26/17 08:00 Room Air 09/26/17 08:00 98.5 75 23 139/68 (91) 97 09/26/17 08:00 75 09/26/17 06:00 68 09/26/17 04:00 98.2 78 22 129/61 (83) 97 09/26/17 04:00 78 09/26/17 03:59 99 Nasal Cannula 2.00 09/26/17 00:00 98.2 69 20 132/68 (89) 99 09/26/17 00:00 69 09/25/17 22:00 75 09/25/17 20:56 99 Nasal Cannula 3.00 09/25/17 20:01 98.4 82 20 152/76 (101) 97 09/25/17 20:00 94 Nasal Cannula 4.00 09/25/17 20:00 82 09/25/17 18:00 91 09/25/17 16:00 98.6 90 28 137/62 (87) 97 09/25/17 16:00 90 I/O 09/25/17 09/25/17 09/25/17 09/26/17 09/26/17 09/26/17 07:00 15:00 23:00 07:00 15:00 23:00 Intake Total 1160 ml 240 ml Output Total 650 ml 2600 ml 550 ml Balance -650 ml -1440 ml -310 ml Intake Oral 960 ml 240 ml IV Total 200 ml Output Urine Total 650 ml 2600 ml 550 ml # Bowel Movements 0 0 Result Diagram: 09/25/17 0130 09/26/17 0555 Imaging Last Impressions Chest X-Ray 09/26/17 0600 Signed Impressions: Service Date/Time: Tuesday, September 26, 2017 03:17 - CONCLUSION: No acute disease. Ricardo Rivas MD Objective Remarks GENERAL: Alert, Oriented x 3, NAD. SKIN: Warm and dry. HEAD: Normocephalic. EYES: No scleral icterus. No injection or drainage. NECK: Supple, trachea midline. No JVD or lymphadenopathy. CARDIOVASCULAR: Regular rate and rhythm without murmurs, gallops, or rubs. RESPIRATORY: Breath sounds equal bilaterally. No accessory muscle use. GASTROINTESTINAL: Abdomen soft, non-tender, nondistended. MUSCULOSKELETAL: No cyanosis, or edema. BACK: Nontender without obvious deformity. No CVA tenderness. Procedures Echo CONCLUSIONS Normal left ventricular size. Mild concentric left ventricular hypertrophy. The left ventricular systolic function is severely reduced with an estimated ejection fraction in the range of 25-30%. There is diffuse global hypokinesis.. The left atrial size is essv-ms-lklxftvsin dilated. The right atrial size is mildly dilated. Uxpl-ky-elutsgrx mitral valve regurgitation. Mild mitral annular calcification. Aortic valve sclerosis is present. There is trace tricuspid valve regurgitation. The estimated pulmonary arterial pressure is 49 mmHg. A/P Problem List: (1) Acute respiratory failure ICD Code: J96.00 - Acute respiratory failure, unspecified whether with hypoxia or hypercapnia (2) Pneumonia ICD Code: J18.9 - Pneumonia, unspecified organism (3) Cardiomyopathy ICD Code: I42.9 - Cardiomyopathy, unspecified Assessment and Plan Ms. Downey is a 62 year old female who presented to the hospital as Gretchen Stevenson due to respiratory failure. She recently moved to [place] from [place]. She was initially managed in the ICU. Cardiology was consulted. Initial imaging studies indicated possible fluid over load as well as pneumonia. She had leukocytosis with WBC around 17K - Acute respiratory failure - Pneumonia - Patient was given Cefepime in the hospital. We discharged patient on 7 day course of Levaquin 750mg Qday. - Walk test prior to discharge. - Cardiomyopathy with EF 25-30% - Acute systolic congestive heart failure - Patient received lasix initially but it was stopped. BNP was 617. - Echo shows EF 25-30%. - She wants to follow up with Dr. Velasquez in the office for further work up and management. - Will start patient on Torsemide 10mg BID, continue Lisinopril - Continue Carvedilol 3.125mg BID. - Further ischemic work up may be needed and patient will discuss with Dr. Vleasquez in the office. Full code. Discharge patient to home Condition on discharge: Improved Heart healthy Diet as tolerated Ad Andreina activity Rx written: Aspirin 81mg Qday Carvedilol 6.25mg Q12hrs Levaquin 750mg Qday X 7 Lisinopril 20mg Qday Torsemide 5mg Qday Follow-up with primary care physician PRN, Cardiology within 1-2 weeks Maxx Shoemaker DO Sep 26, 2017 15:26
--- NOTE | 2017-09-26 18:54 | ECHRPT ---
Indication: SHORTNESS OF BREATH CONCLUSIONS Normal left ventricular size. Mild concentric left ventricular hypertrophy. The left ventricular systolic function is severely reduced with an estimated ejection fraction in th e range of 25-30%. There is diffuse global hypokinesis.. The left atrial size is vjyy-ma-eoabnbpzqq dilated. The right atrial size is mildly dilated. Jles-im-pyvihyty mitral valve regurgitation. Mild mitral annular calcification. Aortic valve sclerosis is present. There is trace tricuspid valve regurgitation. The estimated pulmonary arterial pressure is 49 mmHg. BP: 86 / 53 HR: 66 Rhythm: Sinus MEASUREMENTS (Male / Female) Normal Values Technical Quality:Fair 2D ECHO LV Diastolic Diameter PLAX 5.9 cm 4.2 - 5.9 / 3.9 - 5.3 cm LV Systolic Diameter PLAX 5.3 cm IVS Diastolic Thickness 1.1 cm 0.6 - 1.0 / 0.6 - 0.9 cm LVPW Diastolic Thickness 1.1 cm 0.6 - 1.0 / 0.6 - 0.9 cm LV Relative Wall Thickness 0.4 RV Internal Dim ED PLAX 2.7 cm LVOT Diameter 2.4 cm Aortic Root Diameter 2.6 cm LA Systolic Diameter LX 3.3 cm 3.0 - 4.0 / 2.7 - 3.8 cm DOPPLER AV Peak Velocity 142.0 cm/s AV Peak Gradient 8.1 mmHg AV Mean Gradient 4.0 mmHg AV Velocity Time Integral 28.0 cm LVOT Peak Velocity 62.4 cm/s LVOT Peak Gradient 1.6 mmHg LVOT Velocity Time Integral 15.1 cm AV Area Cont Eq vti 2.4 cm AV Area Cont Eq pk 2.0 cm Mitral E Point Velocity 116.0 cm/s Mitral A Point Velocity 80.9 cm/s Mitral E to A Ratio 1.4 LV E' Lateral Velocity 4.9 cm/s Mitral E to LV E' Lateral Ratio 23.8 LV E' Septal Velocity 5.3 cm/s Mitral E to LV E' Septal Ratio 22.1 TR Peak Velocity 311.0 cm/s TR Peak Gradient 39.0 mmHg Right Atrial Pressure 10.0 mmHg Pulmonary Artery Systolic Pressu 48.7 mmHg Right Ventricular Systolic Press 48.7 mmHg PV Peak Velocity 80.5 cm/s PV Peak Gradient 2.6 mmHg FINDINGS LEFT VENTRICLE Normal left ventricular size. Mild concentric left ventricular hypertrophy. The left ventricular systolic function is severely reduced with an estimated ejection fraction in th e range of 25-30%. There is diffuse global hypokinesis. RIGHT VENTRICLE Normal right ventricular size and systolic function. LEFT ATRIUM The left atrial size is hgcb-pz-gqkixettkx dilated. RIGHT ATRIUM The right atrial size is mildly dilated. ATRIAL SEPTUM No atrial level shunt is demonstrated by color flow Doppler interrogation. AORTA The aortic root and proximal ascending aorta are normal in size on limited imaging. MITRAL VALVE Kdol-dk-zsgxkvxw mitral valve regurgitation. Mild mitral annular calcification. AORTIC VALVE Aortic valve sclerosis is present. TRICUSPID VALVE There is trace tricuspid valve regurgitation. The estimated pulmonary arterial pressure is 48.7 mmHg. PULMONARY VALVE No pulmonary valve regurgitation or stenosis. VESSELS The inferior vena cava is normal in size. PERICARDIUM No pericardial effusion. Pedro Michael MD, FACC (Electronically Signed) Final Date:26 September 2017 18:53
[2017-09-27] MEDS ORDERED: TORS5TAB2 PO (09:56)
== END 2017-09-26 17:25 | disposition home or self-care (01) | DRG 291 ==
LOC: NEPC 01:16 → EDBD 02:40 → NEDA 02:40 → HIME 06:00
PROVIDERS: ADMIT Hospitalist; ATTEND Hospitalist
PROC: 5A09357 Assistance with Respiratory Ventilation, Less than 24 Consecutive Hours, Continuous Positive Airway Pressure (ICD-10-PCS; principal; 2017-09-25)
DX: I11.0 Hypertensive heart disease with heart failure (principal); J18.9 Pneumonia, unspecified organism; J96.01 Acute respiratory failure with hypoxia; N17.9 Acute kidney failure, unspecified; I16.9 Hypertensive crisis, unspecified; E66.01 Morbid (severe) obesity due to excess calories; I08.3 Combined rheumatic disorders of mitral, aortic and tricuspid valves; I42.9 Cardiomyopathy, unspecified; E11.9 Type 2 diabetes mellitus without complications; I50.21 Acute systolic (congestive) heart failure; F17.210 Nicotine dependence, cigarettes, uncomplicated; Z68.36 Body mass index [BMI] 36.0-36.9, adult; Z79.84 Long term (current) use of oral hypoglycemic drugs
CPT/HCPCS: 51702; 71045; 80048; 80053; 81001; 82550; 82552; 83605; 83735; 83880; 84100; 84484; 85007; 85027; 85610; 85730; 87040; 87070; 87086; 87205; 87449; 87804; 93005; 93306; 94002; 94003; 94618; 94640; 94664; 96365; J0692; J1644; J1940; J2060